=== PATIENT | male | born 1960 | race Caucasian/White ===

== ENCOUNTER 2017-02-28 20:12 | Emergency (ER) | payer MEDICAID ==
[~2017-02-28] VITALS: Ht 182.9 cm; Wt 65.8 kg
[~2017-02-28 20:12] MED LIST: ASPIRIN 81MG TA81 MG PO
--- NOTE | 2017-02-28 20:33 | Emergency Room Report ---
History of Present Illness Time Seen by 2023 Presenting Problem in Triage Pt arrived:Walked Presenting Problem:left sided chest wall pain x 3 weeks. 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 N Clinical Suspician of Infection? N Mental Status: 1 - Regular (Normal Baseline) Sepsis Risk:Low Sepsis Risk Have you (or family members/close friends) recently traveled outside the [place]? N If Yes, where/when: Have you had exposure to infectious disease within the past month? TB? Other? Specify: Source patient, RN notes reviewed, family, old records Exam Limitations no limitations Comment 3 week hx of lt rib pain with prev eval by pcp and had neg xrays at [facility] - no rash or fever and no neuro sx but has persistant pain w/o hemoptysis and worse with insp Cardiac Chest Pain Chest pain indicative of cardiac No Timing/Duration this evening Severity moderate ALLERGIES Coded Allergies: No Known Allergies (11/17/16) Home Medications Reported Medications ASPIRIN (Aspirin) 81 MG PO DAILY History Medical History General CAD? No Angina: No OR: No Hypertension? No Hyperlipidemia? No CHF? No DVT? No PE? No COPD? No Asthma? No Anemia? No GERD? No Gastric ulcers? No GI Bleed? No Hernia? No Thyroid Problems? No Hypothyroidism? No CVA? Yes Seizures? No Diabetes? No Renal Insuffiency? No End Stage Renal Disease? No UTI? No Stones? No GB Disease: No Nephritic Syndrome? No Asplenia? No Hepatitis? No Sickle Cell Disease? No Arthritis? No Migraines? No Cataracts? No Glaucoma? No MRSA? No HIV? No TB? No Anxiety? No Depression? No Cancer? No Immunization Hx DT/Tetanus > 10 YRS Surgical Hx Previous Surgery?Y APPENDECTOMY Social History Smoking Hx Smoker: Current Every Day Smoker Tobacco: Yes Type Cigarettes Packs/day 2 1/2 - 3 Packs Alcohol Alcohol: No Drugs none Additionial History Additional History no trauma Review of Systems All Other Systems Reviewed and Negative Constitutional denies fever Eyes denies drainage ENT denies: ear pain, epistaxis, throat pain. Respiratory see HPI, denies cough, denies shortness of breath, other Cardiovascular denies chest pain, denies palpitations, denies syncope Gastrointestinal denies abdominal pain, denies nausea, denies vomiting Genitourinary denies: dysuria, frequency, hesitancy, hematuria. Musculoskeletal denies back pain, denies joint pain, denies joint swelling, denies neck pain Skin denies rash Psychiatric/Neurological denies headache, denies seizure Physical Exam Vital Signs Vital Signs Date Time Temp Pulse Resp B/P Pulse O2 O2 Flow FiO2 Ox Delivery Rate 02/28 2017 98.4 69 14 152/94 100 - WBC >12,000 or <4,000 or 10% bands? 2 or more SIRS Criteria Met? B/P:152/94 MAP:113 Creatinine >2.0? UA output<0.5ml/kg/hr for 2 hrs? Platelet count >100,000? Lactate >2.0mmol/1? INR >1.2 or PTT > than 60 sec? Evidence of Organ Dysfunction? Provider documented clinical suspician of infection? N Sepsis Criteria Count: 0 Sepsis Risk: Low Sepsis Risk General Appearance no apparent distress Eye Exam - bilateral eye PERRL, bilateral eye EOMI Ear, Nose, Throat normal ENT inspection Neck supple Respiratory Status Yes: tender on palpation. No: respiratory distress. Lung Sounds left: crackles. 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 No Results/Orders Orders Procedure Date/time Status [id number] VIEWS 02/29 2024 Active XRAY/CT/US XRAY/CT/US XRAY rib XR interpretation by reviewed by me Xray Results no fracture seen Departure Departure Time of Disposition 2057 Disposition DC Home or Self Care(routine) Clinical Impression Primary Impression: Pleurisy Condition STABLE Patient Instructions DI for Pleurisy Additional Instructions use meds and see pcp for follow up Discharge Counseling Counseled pt/family regarding diagnosis, test results, medications/RX, follow up needs Prescriptions Current Visit Scripts Prednisone (Prednisone 20MG) 20 MG PO BID #10 TAB ED Critical Care Critical Care No at 0827
--- NOTE | 2017-02-28 20:33 | Emergency Room Report ---
History of Present Illness Time Seen by 2023 Presenting Problem in Triage Pt arrived:Walked Presenting Problem:left sided chest wall pain x 3 weeks. 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 N Clinical Suspician of Infection? N Mental Status: 1 - Regular (Normal Baseline) Sepsis Risk:Low Sepsis Risk Have you (or family members/close friends) recently traveled outside the [place]? N If Yes, where/when: Have you had exposure to infectious disease within the past month? TB? Other? Specify: Source patient, RN notes reviewed, family, old records Exam Limitations no limitations Comment 3 week hx of lt rib pain with prev eval by pcp and had neg xrays at [facility] - no rash or fever and no neuro sx but has persistant pain w/o hemoptysis and worse with insp Cardiac Chest Pain Chest pain indicative of cardiac No Timing/Duration this evening Severity moderate ALLERGIES Coded Allergies: No Known Allergies (11/17/16) Home Medications Reported Medications ASPIRIN (Aspirin) 81 MG PO DAILY History Medical History General CAD? No Angina: No PR: No Hypertension? No Hyperlipidemia? No CHF? No DVT? No PE? No COPD? No Asthma? No Anemia? No GERD? No Gastric ulcers? No GI Bleed? No Hernia? No Thyroid Problems? No Hypothyroidism? No CVA? Yes Seizures? No Diabetes? No Renal Insuffiency? No End Stage Renal Disease? No UTI? No Stones? No GB Disease: No Nephritic Syndrome? No Asplenia? No Hepatitis? No Sickle Cell Disease? No Arthritis? No Migraines? No Cataracts? No Glaucoma? No MRSA? No HIV? No TB? No Anxiety? No Depression? No Cancer? No Immunization Hx DT/Tetanus > 10 YRS Surgical Hx Previous Surgery?Y APPENDECTOMY Social History Smoking Hx Smoker: Current Every Day Smoker Tobacco: Yes Type Cigarettes Packs/day 2 1/2 - 3 Packs Alcohol Alcohol: No Drugs none Additionial History Additional History no trauma Review of Systems All Other Systems Reviewed and Negative Constitutional denies fever Eyes denies drainage ENT denies: ear pain, epistaxis, throat pain. Respiratory see HPI, denies cough, denies shortness of breath, other Cardiovascular denies chest pain, denies palpitations, denies syncope Gastrointestinal denies abdominal pain, denies nausea, denies vomiting Genitourinary denies: dysuria, frequency, hesitancy, hematuria. Musculoskeletal denies back pain, denies joint pain, denies joint swelling, denies neck pain Skin denies rash Psychiatric/Neurological denies headache, denies seizure Physical Exam Vital Signs Vital Signs Date Time Temp Pulse Resp B/P Pulse O2 O2 Flow FiO2 Ox Delivery Rate 02/28 2017 98.4 69 14 152/94 100 - WBC >12,000 or <4,000 or 10% bands? 2 or more SIRS Criteria Met? B/P:152/94 MAP:113 Creatinine >2.0? UA output<0.5ml/kg/hr for 2 hrs? Platelet count >100,000? Lactate >2.0mmol/1? INR >1.2 or PTT > than 60 sec? Evidence of Organ Dysfunction? Provider documented clinical suspician of infection? N Sepsis Criteria Count: 0 Sepsis Risk: Low Sepsis Risk General Appearance no apparent distress Eye Exam - bilateral eye PERRL, bilateral eye EOMI Ear, Nose, Throat normal ENT inspection Neck supple Respiratory Status Yes: tender on palpation. No: respiratory distress. Lung Sounds left: crackles. 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 No Results/Orders Orders Procedure Date/time Status [id number] VIEWS 02/29 2024 Active XRAY/CT/US XRAY/CT/US XRAY rib XR interpretation by reviewed by me Xray Results no fracture seen Departure Departure Time of Disposition 2057 Disposition DC Home or Self Care(routine) Clinical Impression Primary Impression: Pleurisy Condition STABLE Patient Instructions DI for Pleurisy Additional Instructions use meds and see pcp for follow up Discharge Counseling Counseled pt/family regarding diagnosis, test results, medications/RX, follow up needs Prescriptions Current Visit Scripts Prednisone (Prednisone 20MG) 20 MG PO BID #10 TAB ED Critical Care Critical Care No at 1081
--- OUTSIDE RECORDS SUMMARY | 2017-02-28 20:40 | External Medical Summary Rpt ---
Author Author , Organization [employer] Address Unknown Phone Unavailable Care Team Providers Care Client Executive Name Role Phone REDDING, REDDING Unavailable Unavailable [facility] Unavailable [facility] Unavailable Unavailable [facility] Unavailable Unavailable SERVICE, [facility] Unavailable Unavailable SERVICE, [facility], Unavailable Unavailable [facility] Unavailable Unavailable INC, [facility] Unavailable [facility]available HOSPITAL P, [facility] ELDER FRIEDMAN Unavailable Unavailable SATISH, SATISH Unavailable Unavailable [facility] Un[facility] DIANNE DEAN Unavailable Unavailable [facility] Unavailable Unavailable AMBULANCE , [facility] Unavailable Unavailable AMBULANCE SE, [facility] NICKELS, NICKELS Unavailable Unavailable RASLAU, RASLAU Unavailable Unavailable Purpose Continuity of Care Document - 11-17-2016 through 2016 Problems Code Diagnosis DOS Provider Status J329 CHRONIC 12-31-2016 [facility] SINUSITIS [facility] UNSPECIFIED INC R05 COUGH 12-31-2016 [facility] INC R509 FEVER 12-31-2016 [facility] UNSPECIFIED [facility] INC R09.89 OTHER 12-10-2016 SPECIFIED SYMPTOMS AND SIGNS INVOLVING THE CIRCULATORY AND RESPIRATORY SYSTEMS Z12.5 ENCOUNTER 12-10-2016 FOR SCREENING FOR MALIGNANT NEOPLASM OF PROSTATE Z13.29 ENCOUNTER 12-10-2016 FOR SCREENING FOR OTHER SUSPECTED ENDOCRINE DISORDER R0989 OTH SPEC SX 12-09-2016 [facility] CIRC & RESP SYS Z125 ENCOUNTER 12-09-2016 [facility] SCREEN[facility] MALIGNANT HOSPITAL NEOPLASM PROSTATE Z1329 ENCOUNTER 12-09-2016 [facility] SUSPECTED HOSPITAL ENDOCRN DISORDER I10 ESSENTIAL 12-07-2016 [facility] HYPERTENSIO N Z09 ENC F/U 11-29-2016 [facility] [place] EX[facility] AFTR [facility]INIC CMPL TX OT THAN MALIG NEOPLSM Z720 TOBACCO USE 11-29-2016 [facility] 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 CEREBRAL 11-18-2016 [facility]NSPEC[facility]IED [facility] 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 TRANSIENT 11-17-2016 [facility] CERE[facility]AL [facility] ISCHEMIC FOUNDATION ATTACK UNSPECIFIED G8190 HEMIPLEGIA 11-17-2016 [facility] UNS [facility] AFFECTING [facility]OUNDATION UNSPECIFIED SIDE I658 OCCLUSION & 11-17-2016 [facility] STENOSIS SERV OTHER FOUNDATION PRECEREBRAL ARTERIES I6602 OCCLUSION & 11-17-2016 [facility] LEFT MIDDLE FOUNDATION CEREBRAL ARTERY R030 ELEVATED 11-17-2016 [facility] BLOOD-PRESS AMBULANCE URE READING SERVICE WITHOUT DX HTN R201 HYPOESTHESI 11-17-2016 [facility] OF SKIN SERV FOUNDATION R208 OTHER 11-17-2016 [facility] DISTURBANCE [facility] S OF SKIN AMBULANCE SENSATION SE [id number] NIHSS SCORE 11-17-2016 [facility] [id number] FACIAL 11-17-2016 YVETTE WEAKNESS [facility] SE R51 HEADACHE 11-17-2016 [facility] R9431 ABNORMAL 11-17-2016 [facility] ELECTROCARD [facility] IOGRAM [facility] G45.9 TRANSIENT CEREBRAL ISCHEMIC ATTACK, 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), AND CEREB INFRC W/O RESID DEFICITS Procedures Procedure DOS Code Location Performer Comment BLOOD 48957 EJ PAGAN COUNT 7 [facility] COMPLETE INC INC AUTO&AUTO DIFRNTL WBC IAADIADOO 69677 TRACEY REDDING 7 CLINIC INFLUENZA COMPREHEN 17110 EJ PAGAN SIVE 7 [facility] METABOLIC INC INC PANEL COMPREHEN 58064 DEJAN WYLIE SIVE 7 [facility] PANEL COLLECTIO 27187 DEJAN WYLIE N VENOUS 7 [facility] VENIPUNCT URE RADIOLOGI 06945 DEJAN WYLIE C EXAM [address] VIEWS FRONTAL&[place] [address] DEJAN WYLIE THYROID 7 [facility] [place] [address] DEJAN WYLIE PROSTATE 7 [facility] [address]409 NURYS DEAN DISCHARGE 7 MEDICAL DAY SERV MANAGEMEN FOUNDATIO T 30 N MIN/< MRI BRAIN 32090 NURYS FRIEDMAN BRAIN 7 MEDICAL STEM W/O SERV CONTRAST FOUNDATIO MATERIAL N RADIOLOGI 55958 NURYS NICKELS C 7 MEDICAL EXAMINATI SERV ON CHEST FOUNDATIO SINGLE N VIEW FRONTAL UNCLASSIF J3490 EJ PAGAN IED DRUGS 7 [facility] INC INC BASIC 54203 EJ PAGAN METABOLIC 7 [facility] PANEL INC INC CALCIUM TOTAL AMB A0427 YVETTE CRAWFORD SERVICE 7 [facility] ALS AMBULANCE AMBULANCE EMERGENCY [place] [address] NURYS RASLAU ANGIOGRAP 7 MEDICAL HY HEAD SERV W/CONTRAS FOUNDAT[place] T/[place] [address] EJ PAGAN HEAD/BRAI 7 [facility] N W/O INC INC CONTRAST MATERIAL PROTHROMB 95952 EJ PAGAN IN TIME 7 [facility] INC INC INITIAL 12068 [facility] 7 MEDICAL CARE/DAY SERV 70 FOUNDATIO MINUTES N ECG 88202 EJ PAGAN ROUTINE 7 [facility] ECG INC INC W/LEAST 12 LDS TRCG ONLY W/O I&R ECG 95212 NURYS SATISH ROUTINE 7 MEDICAL ECG SERV W/LEAST FOUNDATIO 12 LDS N I&R ONLY BLOOD 32770 EJ PAGAN COUNT 7 [facility] H[facility] COMPLETE INC INC AUTO&AUTO DIFRNTL WBC GROUND A0425 [facility] 7 AMBULANCE AMBULANCE [place] [address] NURYS RASLAU ANGIOGRAP 7 MEDICAL HY NECK SERV W/CONTRAS FOUNDATIO T/NONCONT N RAST Encounters Encounter Start End Date Code Location Performer Type Date [facility] EJ Ordonez 7 7 [facility] H[facility] OUTPATIEN INC T OFFICE [address] [facility] 7 7 CLINIC T VISIT 15 MINUTES [facility] DEJAN Ordonez 7 7 [facility] [place] OFFICE [address]92 [facility]ACEY REDDING [facility] 7 CLINIC T VISIT 15 MINUTES OFFICE 89312 [facility] 7 CLINIC T NEW 20 MINUTES EMERGENCY 89775 EJ 7 7 [facility] INC T VISIT HIGH/URGE NT SEVERITY EMERGENCY 51156 NURYS SHETHNER DEPT 7 7 MEDICAL VISIT SERV HIGH FOUNDATIO SEVERITY& N THREAT [facility] EJ - 7 7 [facility] OUTPATIEN INC T
--- OUTSIDE RECORDS SUMMARY | 2017-02-28 20:40 | External Medical Summary Rpt ---
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 Phone AMBROSE BOGGS Unavailable Unavailable REDDING, REDDING Unavailable Unavailable [facility] Unavailable Unavailable [facility], [facility] Unavailable Unavailable [facility]available Unavailable SERVICE, [facility] SERVICE [facility] Unavailable Unavailable SERVICE, [facility] SERVICE [facility], Unavailable Unavailable [facility] Unavailable Unavailable INC, [facility] INC [facility] Unavailable Unavailable HOSPITAL P, [facility] ELDER FRIEDMAN Unavailable Unavailable [facility] DIANNE DEAN Unavailable Unavailable [facility] Unavailable Unavailable AMBULANCE SE, [facility] AMBULANCE SE [facility] Unavailable Unavailable AMBULANCE SE, [facility]ANCE SE NICKELS, NICKELS Unavailable Unavailable RASLAU, RASLAU Unavailable Unavailable SCALF, SCALF Unavailable Unavailable Purpose Continuity of Care Document - 11-17-2016 through 2016 Problems Code Diagnosis DOS Provider Status J329 CHRONIC 12-31-2016 [facility]ITIS [facility] UNSPECIFIED INC R05 COUGH 12-31-2016 [facility] INC R509 FEVER 12-31-2016 E[facility] UNSPECIFIED [facility] INC R0989 OT SPEC SX 12-09-2016 [facility] [facility] CIR[facility] & RESP SYS Z125 ENCOUNTER 12-09-2016 [place] SCREENING [facility] MALIGNANT HOSPITAL NEOPLASM PROSTATE Z1329 ENCOUNTER 12-09-2016 [facility] [facility] SUSPECTED HOSPITAL ENDOCRN DISORDER I10 ESSENTIAL 12-07-2016 [facility] HYPERTENSIO N Z09 ENC F/U 11-29-2016 [facility] EXAM AFTR CLINIC CMPL TX OT THAN [facility] NEOPLSM Z720 TOBACCO USE 11-29-2016 [facility] CLINIC I639 CEREBRAL 11-18-2016 [facility] UNSPECIFIED [facility]OUNDATION 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-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 G459 TRANSIENT 11-17-2016 [place] [facility] CERE[facility]AL SERV ISCHEMIC FOUNDATION ATTACK UNSPECIFIED G8190 HEMIPLEGIA 11-17-2016 [place] [facility] AFFECTING [facility]OUNDATION UNSPECIFIED SIDE I658 OCCLUSION & 11-17-2016 [place] [facility] STENOSIS SERV OTHER FOUNDATION PRECEREBRAL ARTERIES I6602 OCCLUSION & 11-17-2016 [place] [facility] STENOS[facility] SERV LEFT MIDDLE FOUNDATION CEREBRAL ARTERY R030 ELEVATED 11-17-2016 [facility] BLOOD-PRESS AMBULANCE URE READING SERVICE WITHOUT DX HTN R201 HYPOESTHESI 11-17-2016 [facility] OF SKIN SERV FOUNDATION R208 OTHER 11-17-2016 YVETTE DISTURBANCE [facility] S OF SKIN AMBULANCE SENSATION SE X57496 NIHSS SCORE 11-17-2016 [place] [facility] [id number] FACIAL 11-17-2016 YVETTE WEAKNESS [facility] AMBULANCE SE R51 HEADACHE 11-17-2016 [facility] R9431 ABNORMAL 11-17-2016 [facility] MEDICAL ELECTROCARD SERV IOGRAM [place] [facility] Procedures Procedure DOS Code Location Performer Comment BLOOD 67255 EJ PAGAN COUNT 7 [facility] COMPLETE INC INC AUTO&AUTO DIFRNTL WBC COMPREHEN 70716 EJ PAGAN SIVE 7 [facility] H[facility] METABOLIC INC INC PANEL IAADIADOO 98927 TRACEY REDDING 7 CLINIC INFLUENZA COLLECTIO 88150 DEJAN [place] N VENOUS 7 [facility] [place] [address] DEJAN WYLIE THYROID 7 [facility] NG HORMONE TSH RADIOLOGI 66750 CNTRL [place] SCALF C EXAM 7 RADIOLOGY CHEST 2 VIEWS FR[place]AL&[place] [address] [facility] PROSTATE 7 [facility] ANTIGEN FREE COMPREHEN 03545 [facility] [place] SIVE [address] [place] [address] HOSPITAL [address] [place] DEAN DISCHARGE 7 MEDICAL DAY SERV MANAGEMEN FOUNDATIO T 30 N MIN/< MRI BRAIN 07866 [place] ELDER BRAIN 7 MEDICAL STEM W/O SERV CONTRAST FOUNDATIO MATERIAL N RADIOLOGI 20660 [place] NICKELS C 7 MEDICAL EXAMINATI SERV ON CHEST FOUNDATIO SINGLE N VIEW FRONTAL AMB A0427 YVETTE CRAWFORD SERVICE [address] [place] [address] ALS AMBULANCE AMBULANCE EMERGENCY SE SE TRANSPORT LEVEL 1 BASIC 77547 EJ PAGAN METABOLIC 7 [facility] H[facility] PANEL INC INC CALCIUM TOTAL UNCLASSIF J3490 EJ PAGAN IED DRUGS 7 [place] [address] EJ PAGAN HEAD/BRAI 7 [facility] N W/O INC INC CONTRAST MATERIAL ECG 13721 EJ PAGAN ROUTINE 7 [facility] ECG INC INC W/LEAST 12 LDS TRCG ONLY W/O I&R BLOOD 03221 EJ PAGAN COUNT 7 [facility] H[facility]OS[facility] COMPLETE INC INC AUTO&AUTO DIFRNTL WBC PROTHROMB 64798 EJ PAGAN IN TIME 7 [facility] HOS[facility] HOS[facility] INC INC INITIAL 54391 [facility] 7 MEDICAL CARE/DAY SERV 70 FOUNDATIO MINUTES N GROUND A0425 [facility] 7 AMBULANCE AMBULANCE PER SERVICE SERVICE STATUTE MILE ECG 41058 EJ BOGGS ROUTINE 7 [facility] W/LEAST P 12 LDS I&[place] [address] NURYS RASLAU ANGIOGRAP 7 MEDICAL HY HEAD SERV W/CONTRAS FOUNDATIO T/[place] [address] [place] RASLAU ANGIOGRAP 7 MEDICAL HY NECK SERV W/CONTRAS FOUNDATIO T/NONCONT N RAST Encounters Encounter Start End Date Code Location Performer Type Date [facility] EJ - [address] [facility]PAT[facility]EN [facility] T OFFICE 81281 TRACEY REDDING [facility] 7 7 CLINIC T VISIT 15 MINUTES HOSPITAL DEJAN - 7 7 [facility] T OFFICE 49020 TRACEY REDDING [facility] 7 7 CLINIC T VISIT 15 MINUTES OFFICE 19230 TRACEY REDDING [facility] 7 7 CLINIC T NEW 20 MINUTES HOSPITAL EJ - [address] [facility] EMERGENCY 50042 NURYS SHETHNER DEPT 7 7 MEDICAL VISIT SERV HIGH FOUNDATIO SEVERITY& N THREAT [facility] EMERGENCY 67195 EJ 7 7 [facility] INC T VISIT HIGH/URGE NT SEVERITY
--- OUTSIDE RECORDS SUMMARY | 2017-02-28 20:40 | External Medical Summary Rpt ---
Author Author , Organization [employer] Address Unknown Phone Unavailable Care Team Providers Care Ear Nose Throat Physician Name Role Phone AMBROSE BOGGS Unavailable Unavailable REDDING, REDDING Unavailable Unavailable [facility] Unavailable Unavailable HOSPITAL, [facility] Unavailable [facility]available [facility] Unavailable Unavailable SERVICE, [facility] Unavailable Unavailable SERVICE, [facility] SERVICE [facility], Unavailable [facility]available [facility] Unavailable Unavailable INC, [facility] Unavailable Unavailable HOSPITAL P, [facility] ELDER FRIEDMAN Unavailable Unavailable [facility] DIANNE DEAN Unavailable Unavailable [facility] Unavailable Unavailable AMBULANCE SE, [facility] SE [facility] Unavailable Unavailable AMBULANCE SE, [facility] SE NICKELS, NICKELS Unavailable Unavailable RASLAU, RASLAU Unavailable Unavailable SCALF, SCALF Unavailable Unavailable Purpose Continuity of Care Document - 11-17-2016 through 2016 Problems Code Diagnosis DOS Provider Status J329 CHRONIC 12-31-2016 [facility]IS [facility] UNSPECIFIED INC R05 COUGH 12-31-2016 [facility] INC R509 FEVER 12-31-2016 [facility] UNSPECIFIED [facility] INC R0989 OT SPEC SX 12-09-2016 [place] [facility] CIRC & RESP SYS Z125 ENCOUNTER 12-09-2016 [place] SCREENING [facility] NEOPLASM PROSTATE Z1329 ENCOUNTER 12-09-2016 [place] SCREEN [facility] SUSPECTED HOSPITAL ENDOCRN DISORDER I10 ESSENTIAL 12-07-2016 [facility] HYPERTENSIO N Z09 ENC F/U 11-29-2016 [facility] EXAM AFTR [facility]INIC CMPL TX OT THAN [facility] NEOPLSM Z720 TOBACCO USE 11-29-2016 [facility] I639 CEREBRAL 11-18-2016 [place] [facility] UNSPECIFIED FOUNDATION 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 ISCHEMIC FOUNDATION ATTACK UNSPECIFIED G8190 HEMIPLEGIA 11-17-2016 [place] [facility] UNS SERV AFFECTING [facility]OUNDATION UNSPECIFIED SIDE I658 OCCLUSION & 11-17-2016 [place] [facility] STENOSIS SERV OTHER FOUNDATION PRECEREBRAL ARTERIES I6602 OCCLUSION & 11-17-2016 [place] [facility] STEN[facility] SERV LEFT MIDDLE FOUNDATION CEREBRAL ARTERY R030 ELEVATED 11-17-2016 [facility] BLOOD-PRESS AMBULANCE URE READING SERVICE WITHOUT DX HTN R201 HYPOESTHESI 11-17-2016 [facility] A OF SKIN SERV FOUNDATION R208 OTHER 11-17-2016 [facility] DISTURBANCE [facility] S OF SKIN AMBULANCE SENSATION SE [id number] NIHSS SCORE 11-17-2016 [place] [facility] N68805 FACIAL 11-17-2016 [facility] WEAKNESS [facility] AMB[facility]ANCE SE R51 HEADACHE 11-17-2016 [facility] R9431 ABNORMAL 11-17-2016 [place] [facility] ELECTROCARD SERV IOGRAM [facility] Procedures Procedure DOS Code Location Performer Comment BLOOD 96834 EJ P[facility]AN COUNT 7 [facility] COMPLETE INC INC AUTO&AUTO DIFRNTL WBC COMPREHEN 76693 EJ PAGAN SIVE 7 [facility] METABOLIC INC INC PANEL IAADIADOO 86608 [facility] REDDING 7 CLINIC INFLUENZA COLLECTIO 57330 DEJAN H[place]ONON N VENOUS 7 [facility] [place] [address] DEJAN WYLIE THYROID 7 [facility] NG HORMONE TSH RADIOLOGI 53834 CNTRL [place] SCALF C EXAM 7 RADIOLOGY CHEST 2 VIEWS FRONTAL&[place] [address] [facility] PROSTATE 7 [facility] FREE COMPREHEN 70247 [facility] [place] SIVE [address] [place] [address] HOSPITAL [address] [place] DEAN DISCHARGE 7 MEDICAL DAY SERV MANAGEMEN FOUNDATIO T 30 N MIN/< MRI BRAIN 66745 [place] ELDER BRAIN 7 MEDICAL STEM W/O SERV CONTRAST FOUNDATIO MATERIAL N RADIOLOGI 65796 [place] NICKELS C 7 MEDICAL EXAMINATI SERV ON CHEST FOUNDATIO SINGLE N VIEW FRONTAL AMB A0427 YVETTE CRAWFORD SERVICE [address] [place] [address] ALS AMBULANCE AMBULANCE EMERGENCY SE SE TRANSPORT LEVEL 1 BASIC 63041 EJ PAGAN METABOLIC 7 [facility] PANEL INC INC CALCIUM TOTAL UNCLASSIF J3490 EJ PAGAN IED DRUGS 7 [place] [address] EJ PAGAN HEAD/BRAI 7 [facility] N W/O INC INC CONTRAST MATERIAL ECG 64034 EJ PAGAN ROUTINE 7 [facility] ECG INC INC W/LEAST 12 LDS TRCG ONLY W/O I&R BLOOD 67358 EJ PAGAN COUNT 7 MEM HOS[facility] COMPLETE INC INC AUTO&AUTO DIFRNTL WBC PROTHROMB 42129 EJ PAGAN IN TIME 7 MEM HOSP [facility] HOS[facility] INC INC INITIAL 49407 [facility] 7 MEDICAL CARE/DAY SERV 70 FOUNDATIO MINUTES N GROUND A0425 [facility] 7 AMBULANCE AMBULANCE PER SERVICE SERVICE STATUTE MILE ECG 79280 EJ BOGGS ROUTINE 7 [facility] W/LEAST P 12 LDS I&[place] [address] NURYS RASLAU ANGIOGRAP 7 MEDICAL HY HEAD SERV W/CONTRAS FOUNDAT[place] T/[place] [address] [place] RASLAU ANGIOGRAP 7 MEDICAL HY NECK SERV W/CONTRAS FOUNDATIO T/NONCONT N RAST Encounters Encounter Start End Date Code Location Performer Type Date [facility] EJ - 7 7 [facility] OUTPATIEN [facility] T OFFICE 83918 [facility] REDDING [facility] 7 7 CLINIC T VISIT 15 MINUTES HOSPITAL DEJAN - 7 7 [facility] OFFICE 40678 [facility] REDDING [facility] 7 7 CLINIC T VISIT 15 MINUTES OFFICE 57329 [facility] RDEDING [facility] 7 7 CLINIC T NEW 20 MINUTES HOSPITAL EJ - 7 7 [facility] 79477 [facility] DEPT 7 7 MEDICAL VISIT SERV HIGH FOUNDATIO SEVERITY& N THREAT FUNCJ EMERGENCY 85982 EJ 7 7 [facility] INC T VISIT HIGH/URGE NT SEVERITY
--- OUTSIDE RECORDS SUMMARY | 2017-02-28 20:40 | External Medical Summary Rpt ---
Author Author , Organization [employer] Address Unknown Phone Unavailable Care Team Providers Care Cardiac Catheterization Technologist Name Role Phone REDDING, REDDING Unavailable Unavailable [facility] Unavailable Unavailable HOSPITAL, [facility] Unavailable Unavailable [facility]available Unavailable SERVICE, [facility] SERVICE [facility] Unavailable Unavailable SERVICE, [facility] SERVICE [facility], [facility]available [facility]available [facility] Unavailable Unavailable INC, [facility] Unavailable Unavailable HOSPITAL P, [facility] P ELDER FRIEDMAN Unavailable Unavailable SAITSH, SATISH Unavailable Unavailable [facility], [facility] DIANNE DEAN Unavailable Unavailable [facility] Unavailable Unavailable AMBULANCE , [facility] SE [facility] Unavailable Unavailable AMBULANCE SE, [facility] AMB[facility]ANCE SE NICKELS, NICKELS Unavailable Unavailable [...] 12-09-2016 [place] [facility] IN[facility] CIRC & RESP SYS Z125 ENCOUNTER 12-09-2016 [facility] SCREENING [facility] NEOPLASM PROSTATE Z1329 ENCOUNTER 12-09-2016 [place] SCREEN [facility] SUSPECTED HOSPITAL ENDOCRN DISORDER I10 ESSENTIAL 12-07-2016 [facility] HYPERTENSIO N Z09 ENC F/U 11-29-2016 [facility] EXAM AFTR CLINIC CMPL TX OT THAN MALIG NEOPLSM Z720 TOBACCO USE 11-29-2016 [facility] I639 CEREBRAL 11-18-2016 [place] [facility] UNSPECIFIED FOUNDATION 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-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 G459 TRANSIENT 11-17-2016 [place] [facility] CERE[facility]AL SERV ISCHEMIC FOUNDATION ATTACK UNSPECIFIED G8190 HEMIPLEGIA 11-17-2016 [place] [facility] U[facility] SERV AFFECTING [facility]OUNDATION UNSPECIFIED SIDE I658 OCCLUSION & 11-17-2016 [place] [facility] STEN[facility] SERV OTHER FOUNDATION PRECEREBRAL ARTERIES I6602 OCCLUSION & 11-17-2016 [place] [facility] STEN[facility] SERV LEFT MIDDLE FOUNDATION CEREBRAL ARTERY R030 ELEVATED 11-17-2016 [facility] BLOOD-PRESS AMBULANCE URE READING SERVICE WITHOUT DX HTN R201 HYPOESTHESI 11-17-2016 [facility] OF SKIN SERV FOUNDATION R208 OTHER 11-17-2016 [facility] DISTURBANCE [facility] S OF SKIN AMBULANCE SENSATION SE P41853 NIHSS SCORE 11-17-2016 [place] [facility] Q96122 FACIAL 11-17-2016 [facility] WEAKNESS [facility] AMBULANCE SE R51 HEADACHE 11-17-2016 [facility] R9431 ABNORMAL 11-17-2016 [place] [facility] ELECTROCARD SERV IOGRAM FOUNDATION G45.9 TRANSIENT CEREBRAL ISCHEMIC ATTACK, 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 [place] [address] DEJAN WYLIE PROSTATE 7 [facility] AN[facility]IGEN [facility] [address] NURYS DEAN DISCHARGE 7 MEDICAL DAY SERV MANAGEMEN FOUNDATIO T 30 N MIN/< MRI BRAIN 67547 NURYS FRIEDMAN BRAIN 7 MEDICAL STEM W/O SERV CONTRAST FOUNDATIO MATERIAL N RADIOLOGI 63477 NURYS NICKELS C 7 MEDICAL EXAMINATI SERV ON CHEST FOUNDATIO SINGLE N VIEW FRONTAL UNCLASSIF J3490 EJ PAGAN IED DRUGS 7 [facility] HOS[facility] HOS[facility] INC INC BASIC 52707 EJ PAGAN METABOLIC 7 MEM HOSP [facility] PANEL INC INC CALCIUM TOTAL AMB A0427 YVETTE CRAWFORD SERVICE 7 [facility] ALS AMBULANCE AMBULANCE EMERGENCY [place] [address] NURYS RASLAU ANGIOGRAP 7 MEDICAL HY HEAD SERV W/CONTRAS FOUNDATIO T/[place] [address] EJ PAGAN HEAD/BRAI 7 [facility] N W/O INC INC CONTRAST MATERIAL PROTHROMB 77381 EJ PAGAN IN TIME 7 [facility] INC INC INITIAL 29290 [facility] 7 MEDICAL CARE/DAY SERV 70 FOUNDATIO MINUTES N ECG 36556 EJ PAGAN ROUTINE 7 [facility] ECG INC INC W/LEAST 12 LDS TRCG ONLY W/O I&R ECG 55931 NURYS SATISH ROUTINE 7 MEDICAL ECG SERV W/LEAST FOUNDATIO 12 LDS N I&R ONLY BLOOD 99969 EJ PAGAN COUNT 7 MEM HOSP [facility] COMPLETE INC INC AUTO&AUTO DIFRNTL WBC GROUND A0425 [facility] 7 AMBULANCE AMBULANCE [place] [address] NURYS RASLAU ANGIOGRAP 7 MEDICAL HY NECK SERV W/CONTRAS FOUNDATIO T/NONCONT N RAST Encounters Encounter Start End Date Code Location Performer Type Date [facility] EJ Ordonez 7 7 MEM HOSP OUTPATIEN INC T OFFICE 00487 [facility] REDDING [facility] 7 7 CLINIC T VISIT 15 MINUTES [facility] DEJAN Ordonez 7 7 [facility] OFF[facility] 04091 [facility] CLINIC T VISIT 15 MINUTES OFFICE 68433 [facility] 7 CLINIC T NEW 20 MINUTES EMERGENCY 10410 EJ 7 7 [facility] INC T VISIT HIGH/URGE NT SEVERITY EMERGENCY 30676 [facility] DEPT 7 7 MEDICAL VISIT SERV HIGH FOUNDATIO SEVERITY& N THREAT [facility] EJ - 7 7 [facility] OUTPATIEN INC T
--- OUTSIDE RECORDS SUMMARY | 2017-02-28 20:41 | External Medical Summary Rpt ---
Author Author , Organization [employer] Address Unknown Phone Unavailable Purpose Continuity of Care Document - 11-04-2014 through 2016 Immunization Name Date Route CVX Reacti Commen Provid Is Given on t er Refuse d [id number] [place] [address] No 2014 ical Inform ation - Source Unspec ified
--- OUTSIDE RECORDS SUMMARY | 2017-02-28 20:41 | External Medical Summary Rpt ---
Author Author [employer], [employer] Organization [employer] Address Unknown Phone Unavailable
--- OUTSIDE RECORDS SUMMARY | 2017-02-28 20:41 | External Medical Summary Rpt ---
Author Author , Organization [employer] Address Unknown Phone Unavailable Purpose Continuity of Care Document - 11-04-2014 through 2016 Immunization Name Date Route CVX Reacti Commen Provid Is Given on t er Refuse d [id number] [place] [address] No 2014 ical Inform ation - Source Unspec ified
[2017-02-28] MEDS ORDERED: PREDNISONE 20MG20 MG PO (21:01)
[2017-02-28 21:36] VITALS: BP 122/68
--- NOTE | 2017-03-01 08:12 | RADIOLOGY REPORT PS360 ---
[id number] VIEWS HISTORY: Chest pain/left rib pain pain ORDERING PHYSICIAN: Tammy Ruelas MD PATIENT AGE: 57 years COMPARISON: None FINDINGS: A frontal view of the chest shows no acute finding. Calcified granulomas present in the right midlung Multiple views of the Left ribs were obtained. No fracture or dislocation. No lytic or blastic change. IMPRESSION: Negative RIBS. If pain persists, consider follow-up exam in 7-[address] with 3-D reformats.
== END 2017-02-28 21:36 | disposition home or self-care (01) ==
LOC: ER 20:12
DX: R09.1 Pleurisy (principal); Z72.0 Tobacco use